=== PATIENT | female | born 1970 | race Caucasian/White ===

== ENCOUNTER 2016-11-08 05:27 | Day surgery (SDC) | payer BC, OTHER ==
[~2016-11-08] VITALS: Ht 165.1 cm; Wt 106.1 kg
[~2016-11-08 05:27] MED LIST: AMLODIPINE BESYL5 MG PO; ATARAX,VISTARIL25 MG PO; BENADRYL25 MG PO; BUSPAR15 MG PO; BUSPIRONE HCL10 MG PO; CLONAZEPAM0.5 MG PO; CYMBALTA60 MG PO; DELTASONE20 M1 PO; DULOXETINE HCL60 MG PO; FISH OIL 1,0001 EAC7 PO; FISH OIL SOFTG1 EACH PO; FLUTICASONE PRO16 GM BOTH NARES; HYDROCODON-ACE1 EAC7 PO; KLONOPIN0.5 M1 PO; LEXAPRO20 MG PO; LIPITOR40 MG PO; LYRICA200 MG PO; MAXZIDE 37.5 M1 EACH PO; MONTELUKAST SOD10 MG PO; MORPHINE SULFAT15 M1 PO; MULTIPLE VITAM1 EACH PO; NEURONTIN300 MG PO; NITROSTAT0.4 MG SL; NORVASC10 MG PO; OMEPRAZOLE40 M1 PO; ORTHO TRI-CY1 TABLET PO; PEPCID AC20 MG PO; PLAVIX75 MG PO; PROAIR HFA8.5 GM IH; RELAFEN750 MG PO; SEROQUEL100 MG PO; SIMVASTATIN20 MG PO; SINGULAIR10 MG PO; SYMBICORT60 INHALAT IH; ULTRAM50 MG PO; ZANTAC300 MG PO
[2016-11-08 06:09] VITALS: BP 118/73
[2016-11-08] MEDS ORDERED: FLAGYL500 MG PO (10:00)
[2016-11-08] MEDS ORDERED: ENDOCET 5-3251 EACH PO (10:00)
[2016-11-08 11:05] VITALS: BP 96/63
[2016-11-08 12:20] VITALS: BP 107/69
[2016-11-08 13:25] VITALS: BP 103/65
== END 2016-11-08 13:44 | disposition home or self-care (01) ==
LOC: SDC 05:27
DX: R10.2 Pelvic and perineal pain (principal); N80.0 Endometriosis of uterus; D25.9 Leiomyoma of uterus, unspecified; N83.201 Unspecified ovarian cyst, right side; N83.202 Unspecified ovarian cyst, left side; I10 Essential (primary) hypertension; J45.909 Unspecified asthma, uncomplicated; K21.9 Gastro-esophageal reflux disease without esophagitis; M79.7 Fibromyalgia
CPT/HCPCS: 88307; J0330; J0690; J1100; J1580; J2405; J3010